=== PATIENT | female | born 1950 | race Caucasian/White ===

== ENCOUNTER 2025-07-12 20:01 | Emergency (ER) | payer MEDICAID ==
[2025-07-12] MEDS ORDERED: ONDANSETRON 4 MG/2 ML VIAL ONE (20:08)
[2025-07-12] MEDS ORDERED: GLUCAGON 1 MG/VIAL ONE (20:09)
[2025-07-12 20:27] LABS: Absolute Lymphocytes (CBC) 3.3 K/uL (0.7-4.9); Hematocrit 35.3 % (36.0-45.0); Hemoglobin 11.4 g/dL (12.0-15.0); MCH 24.3 pg (27.0-35.0); MCHC 32.2 g/dL (32.0-36.0); MCV 75.4 fL (80-100); MPV 7.6 fL (7.6-11.3); Nucleated RBC Absolute Count 0.0 (0-0); Nucleated Red Blood Cells % 0.0 % (0-0); RBC Red Blood Cell Count 4.68 M/uL (3.86-4.86); White Blood Count 9.10 thou/uL (4.3-10.9)
[2025-07-12 20:46] LABS: ALT/SGPT 17.0 U/L (13-56); AST/SGOT 13.0 U/L (15-37); Albumin 4.0 g/dL (3.4-5.0); Albumin/Globulin Ratio 1.2 (1.1-1.8); Alkaline Phosphatase 54.0 U/L (45-117); Anion Gap 8.4 mEq/L (5.0-15.0); BUN Blood Urea Nitrogen 13.0 mg/dL (7-18); Globulin 3.3 g/dL (2.3-3.5); Glucose Level 105.0 mg/dL (74-106); Potassium 3.4 mEq/L (3.5-5.1)
--- NOTE | 2025-07-12 20:58 | ER ---
Nurse's Notes [facility] Name: Corinna Landeros Age: 75 yrs Sex: Female : 1950 Arrival Date: 07/12/2025 Time: 20:01 Bed 7 Private MD: Diagnosis: Foreign body in esophagus-resolved Presentation: 07/12 20:06 Chief complaint: EMS states: started to feel like choking while eating fajita. Stridor cc6 present below trachea. Coronavirus screen: Client denies travel out of the [place] in the last 14 days. At this time, the client does not indicate any symptoms associated with coronavirus-19. Ebola Screen: No symptoms or risks identified at this time. 20:06 Method Of Arrival: EMS: [facility] cc6 20:06 Initial Sepsis Screen: Does the patient meet any 2 criteria? No. Patient's initial cc6 sepsis screen is negative. Does the patient have a suspected source of infection? No. Patient's initial sepsis screen is negative. Risk Assessment: Do you want to hurt yourself or someone else? Patient reports no desire to harm self or others. Onset of symptoms was July 12, 2025. 20:06 Acuity: RIAZ 3 cc6 Triage Assessment: 20:19 General: Appears in no apparent distress. uncomfortable, Behavior is calm, cooperative. cc6 Pain: Denies pain. EENT: Throat Reports feels a piece of fajita stuck in her throat. . Neuro: Level of Consciousness is awake, alert, obeys commands, Oriented to person, place, time, situation. Cardiovascular: Patient's skin is warm and dry. Respiratory: Airway Respiratory effort is even, unlabored, Respiratory pattern is regular, symmetrical. Historical: - Allergies: 20:13 No Known Allergies; cc6 - Home Meds: 20:13 trazodone Oral [Active]; Xanax Oral [Active]; cc6 - PMHx: 20:19 Osteoporosis; cc6 - PSHx: 20:19 foot surgery; cc6 - Immunization history:: Adult Immunizations up to date, Client reports having NOT received the Covid vaccine. - Infectious Disease History:: Denies. - Social history:: Smoking status: Patient denies any tobacco usage or history of. Screenin:15 [facility] ED Fall Risk Assessment (Adult) History of falling in the last 3 months, ha1 including since admission No falls in past 3 months (0 pts) Confusion or Disorientation No (0 pts) Intoxicated or Sedated No (0 pts) Impaired Gait No (0 pts) Mobility Assist Device Used No (0 pt) Altered Elimination No (0 pt) Score/Fall Risk Level 0 - 2 = Low Risk Oriented to surroundings, Maintained a safe environment, Educated pt \T\ family on fall prevention, incl call for assistance when getting out of bed, Hourly rounding (assess needs \T\ fall precautionary measures) done. Abuse screen: Denies threats or abuse. Denies injuries from another. Nutritional screening: No deficits noted. Tuberculosis screening: No symptoms or risk factors identified. Assessment: 21:15 Reassessment: Patient and/or family updated on plan of care and expected duration. Pain ha1 level reassessed. Patient is alert, oriented x 3, equal unlabored respirations, skin warm/dry/pink. PIECE OF MEAT CAME OUT. Patient denies pain at this time. Patient states feeling better. Patient states symptoms have improved. Vital Signs: 20:06 BP 145 / 74; Pulse 109; Resp 17; Temp 98.2(T); Pulse Ox 96% on R/A; Weight 56.7 kg; cc6 Height 5 ft. 2 in. ; Pain 0/10; 21:17 BP 145 / 94; Pulse 71; Resp 18 S; Temp 97.6; Pulse Ox 97% on R/A; ha1 20:06 Body Mass Index 22.86 (56.70 kg, 157.48 cm) cc6 20:06 Pain Scale: Adult cc6 ED Course: 20:04 Patient arrived in ED. cc6 20:04 Anita Wells FNP-C is PHCP. kb 20:05 Pankaj Yang MD is Attending Physician. kb 20:05 Shana Rashid, JOANNA is Primary Nurse. kd3 20:12 Triage completed. cc6 20:19 CBC with Diff Sent. kd3 20:19 CMP Sent. kd3 20:32 Inserted saline lock: 22 gauge in right forearm, using aseptic technique. Blood oe collected. Flushed with 10 mL NS. 20:50 Chest Single View XRAY In Process Unspecified. EDMS 21:16 No provider procedures requiring assistance completed. IV discontinued, intact, ha1 bleeding controlled, No redness/swelling at site. Pressure dressing applied. 21:16 Arm band placed on right wrist. ha1 21:17 Patient has correct armband on for positive identification. Placed in gown. Bed in low ha1 position. Call light in reach. Side rails up X 1. Provided Education on: FOLLOW [employer] . Administered Medications: 20:19 Drug: Glucagon IVP 1 mg IVP once Route: IVP; Site: right forearm; kd3 21:18 Follow up: Response: No adverse reaction bm8 20:19 Drug: Ondansetron IVP 4 mg IVP once; over 2 minutes Route: IVP; Site: right forearm; kd3 21:18 Follow up: Response: No adverse reaction bm8 Medication: 21:16 VIS not applicable for this client. ha1 Outcome: 20:57 Discharge ordered by . kb 21:16 Discharged to home ambulatory, ha1 21:16 Condition: stable 21:16 Discharge instructions given to patient, Instructed on discharge instructions, follow up and referral plans. Demonstrated understanding of instructions, follow-up care, 21:18 Patient left the ED. ha1 Signatures: Dispatcher [employer] EDMS Anita Wells, STEREOTYPER APPRENTICE-C STEREOTYPER APPRENTICE-CkWong Erwin Kyli RN RN kd3 Anita Zepeda, JOANNA RN ha1 Braulio Decker, RN RN bm8 Yolanda aBbin, JOANNA RN cc6 Corrections: (The following items were deleted from the chart) 20:12 20:06 BP 145 / 74; Pulse 109bpm; Resp 17bpm; Pulse Ox 96% RA; Temp 98.2F; cc6 cc6 20:20 20:19 PMHx: foot surgery; cc6 cc6
--- NOTE | 2025-07-12 20:58 | EDPHYS ---
Physician Documentation [facility] Name: Corinna Landeros Age: 75 yrs Sex: Female : 1950 Arrival Date: 07/12/2025 Time: 20:01 Bed 7 Private MD: ED Physician Pankaj Yang HPI: 07/12 21:44 This 75 yrs old Unknown Female presents to ER via EMS with complaints of Choked/Choking.kb 21:44 Patient is a 75-year-old female who presents for fajita steak stuck in throat that kb occurred just prior to arrival. States she has had this happen in the past. Denies shortness of breath.. Historical: - Allergies: 20:13 No Known Allergies; cc6 - Home Meds: 20:13 trazodone Oral [Active]; Xanax Oral [Active]; cc6 - PMHx: 20:19 Osteoporosis; cc6 - PSHx: 20:19 foot surgery; cc6 - Immunization history:: Adult Immunizations up to date, Client reports having NOT received the Covid vaccine. - Infectious Disease History:: Denies. - Social history:: Smoking status: Patient denies any tobacco usage or history of. ROS: 21:43 Constitutional: As per HPI kb Exam: 21:43 Constitutional: This is a well developed, well nourished patient who is awake, alert, kb and in no acute distress. Head/Face: Normocephalic, atraumatic. ENT: Moist Mucous membranes Cardiovascular: Regular rate Respiratory: Respirations even and unlabored. No increased work of breathing. Talking in full sentences Abdomen/GI: Soft, non-tender. No distention Skin: Warm, dry with normal turgor. Normal color. MS/ Extremity: Pulses equal, no cyanosis. Neurovascular intact. Full, normal range of motion. Neuro: Awake and alert, GCS 15, oriented to person, place, time, and situation. Vital Signs: 20:06 BP 145 / 74; Pulse 109; Resp 17; Temp 98.2(T); Pulse Ox 96% on R/A; Weight 56.7 kg; cc6 Height 5 ft. 2 in. ; Pain 0/10; 21:17 BP 145 / 94; Pulse 71; Resp 18 S; Temp 97.6; Pulse Ox 97% on R/A; ha1 20:06 Body Mass Index 22.86 (56.70 kg, 157.48 cm) cc6 20:06 Pain Scale: Adult cc6 MDM: 20:05 Medical Screening Exam initiated kb 21:42 Differential Diagnosis Aspiration, food bolus, choking. Data reviewed: vital signs, kb nurses notes. Historians other than the Patient: EMS: [facility]. Counseling: I had a detailed discussion with the patient and/or guardian regarding the historical points, exam findings, and any diagnostic results supporting the discharge/admit diagnosis, lab results, radiology results, the need for outpatient follow up, a family practitioner, to return to the emergency department if symptoms worsen or persist or if there are any questions or concerns that arise at home. ED course: Patient was able to cough up the pieces of fajita steak, states she is feeling better and wants to go home.. 07/12 20:05 Order name: CBC with Diff; Complete Time: 20:32 kb 07/12 20:05 Order name: CMP; Complete Time: 20:56 kb 07/12 20:05 Order name: Chest Single View XRAY; Complete Time: 21:11 kb 07/12 20:05 Order name: IV Start; Complete Time: 20:19 kb Administered Medications: 20:19 Drug: Glucagon IVP 1 mg IVP once Route: IVP; Site: right forearm; kd3 21:18 Follow up: Response: No adverse reaction bm8 20:19 Drug: Ondansetron IVP 4 mg IVP once; over 2 minutes Route: IVP; Site: right forearm; kd3 21:18 Follow up: Response: No adverse reaction bm8 Disposition: 07/13 01:01 Co-signature as Attending Physician, Pankaj Yang MD I agree with the assessment sp4 and plan of care. I reviewed the patient's care provided by the Advanced Practice Provider and agree with the diagnosis and treatment plan. Disposition Summary: 07/12/25 20:57 Discharge Ordered Notes: Location: Home kb Condition: Stable kb Diagnosis - Foreign body in esophagus - resolved kb Followup: kb - With: Emergency Department - When: As needed - Reason: Worsening of condition Followup: kb - With: Private Physician - When: 2 - 3 days - Reason: Recheck today's complaints, Continuance of care, Re-evaluation by your physician Discharge Instructions: - Discharge Summary Sheet kb - Choking, Adult kb - Swallowed Foreign Body, Adult, [id number] kb Forms: - Medication Reconciliation Form kb - Antibiotic Education kb - Prescription Opioid Use kb - Patient Portal Instructions kb - Leadership Thank You Letter kb Signatures: Dispatcher [employer] EDMS Anita Wells, VACUUM CASTER-C VACUUM CASTER-CkShana Thornton, RN RN kd3 Pankaj Yang MD MD sp4 Yolanda Babin RN RN cc6 Braulio Decker RN bm8 Corrections: (The following items were deleted from the chart) 07/12 20:06 20:06 CBC+H.LAB.BRZ ordered. EDMS EDMS 20:06 20:06 COMPREHENSIVE METABOLIC PANEL+C.LAB.BRZ ordered. EDMS EDMS 20:06 20:06 Chest Single View+RAD.RAD.BRZ ordered. EDMS EDMS 20:20 20:19 PMHx: foot surgery; cc6 cc6
--- NOTE | 2025-07-12 21:10 | RAD REPORT ---
Procedure: Chest Single View HISTORY: Cough COMPARISON: none FINDINGS: The lungs appear clear of acute infiltrate. No significant pleural effusion noted. The heart is normal size. IMPRESSION: No acute abnormality is displayed.
[2025-07-12 21:35] VITALS: BP 145/94; TEMP 97.6; O2SAT 97
== END 2025-07-12 21:18 | disposition home or self-care (01) ==
LOC: ER 20:01
DX: T18.128A Food in esophagus causing other injury, initial encounter (principal); M81.0 Age-related osteoporosis without current pathological fracture
CPT/HCPCS: 85025; 36415; 80053; 71045; 96375; 96374; 99284; J1610; J2405